=== PATIENT | female | born 1990 | race Caucasian/White ===

== ENCOUNTER 2021-10-16 16:14 | Emergency (ER) | payer MEDICAID ==
[~2021-10-16] VITALS: Ht 162.6 cm; Wt 75.5 kg
[2021-10-16 16:39] VITALS: BP 131/84
[2021-10-16] MEDS ORDERED: NITR100C7 PO (17:54)
--- NOTE | 2021-10-16 18:13 | NUR ---
ATTEMPTED TO CALL PATIENT, NO ANSWER
== END 2021-10-16 18:34 | disposition home or self-care (01) ==
LOC: MED 16:14
DX: N39.0 Urinary tract infection, site not specified (principal); Z13.30 Encounter for screening examination for mental health and behavioral disorders, unspecified; Z79.2 Long term (current) use of antibiotics
CPT/HCPCS: 81002; 81025; 99283

== ENCOUNTER 2023-08-22 18:31 | Emergency (ER) | payer SELFPAY ==
[~2023-08-22] VITALS: Ht 154.9 cm; Wt 68.9 kg
[~2023-08-22 18:31] MED LIST: NITR100C7 PO
[2023-08-22 18:45] VITALS: BP 126/72; PULSE 107; RESP 20; TEMP 97.6; O2SAT 98
[2023-08-22 19:17] VITALS: BP 126/72; PULSE 107; RESP 20; TEMP 97.6; O2SAT 98
[2023-08-22] MEDS ORDERED: NAPR-337 PO (19:18)
[2023-08-22] MEDS ORDERED: AMOX1TAB8 PO (19:18)
[2023-08-22] MEDS: DEXAMETHASONE 10 MG/ML VIAL PO ONE (19:24)
== END 2023-08-22 19:30 | disposition home or self-care (01) ==
LOC: MED 18:31
DX: K04.7 Periapical abscess without sinus (principal); Z86.69 Personal history of other diseases of the nervous system and sense organs; Z79.899 Other long term (current) drug therapy; Z88.2 Allergy status to sulfonamides; Z88.1 Allergy status to other antibiotic agents
CPT/HCPCS: 99283; J1100